=== PATIENT | female | born 1990 | race Two or more races ===

== ENCOUNTER 2024-12-01 00:39 | Emergency (ER) | payer OTHER ==
[~2024-12-01] VITALS: Ht 160 cm; Wt 68.0 kg
[2024-12-01] MEDS ORDERED: HYOSCYAMINE SULFATE 0.125 MG TAB.SUBL SL STA (02:21)
[2024-12-01] MEDS ORDERED: PROMETHAZINE HCL 50 MG/ML AMPUL IM STA (02:22)
[2024-12-01] MEDS ORDERED: PROMETHAZINE HCL 50 MG/ML AMPUL IM ONE (02:23)
[2024-12-01] MEDS ORDERED: LACTOBACILLUS ACIDOPHILUS 1 CAP CAP PO STA (02:23)
[2024-12-01] MEDS ORDERED: FAMOTIDINE/PF 20 MG/2 ML VIAL IV PUSH STA (02:23)
[2024-12-01] MEDS ORDERED: HYOSCYAMINE SULFATE 0.125 MG TAB.SUBL ONE (02:24)
[2024-12-01] MEDS ORDERED: FAMOTIDINE/PF 20 MG/2 ML VIAL ONE (02:24)
[2024-12-01] MEDS ORDERED: LACTOBACILLUS ACIDOPHILUS 1 CAP CAP PO ONE (02:24)
[2024-12-01] MEDS ORDERED: 0.9 % SODIUM CHLORIDE 1,000 ML IV ONE (02:30)
[2024-12-01 03:06] LABS: BASO % 0.1 % (0.1-1.2); EOS # 0.00 (0.04-0.54); EOS % 0.0 % (0.7-7.0); LYMPH # 0.34 (1.18-3.74); LYMPH % 2.1 % (19.3-53.1); MEAN PLATELET VOLUME 8.90 fl (9.4-12.4); MONO # 0.41 (0.24-0.82); MONO % 2.6 % (4.7-12.5); NEUT # 15.09 (1.56-6.13); NEUT % 94.8 % (34.0-71.1); RED CELL DISTRIBUTION WIDTH 12.3 % (11.6-14.4)
[2024-12-01 03:23] LABS: URINE APPEARANCE Clear; URINE BILIRRUBIN Negative (NEGATIVE); URINE BLOOD Small; URINE COLOR Yellow; URINE GLUCOSE Negative (NEGATIVE); URINE KETONE Trace (NEGATIVE); URINE LEUKOCYTE Negative; URINE NITRATE Negative; URINE PROTEIN 30 (NEGATIVE); URINE UROBILINOGEN 0.2 E.U./dl
[2024-12-01 03:27] LABS: URINE BACTERIA 1497.4 uL (0.0-1933); URINE EPITHELIAL CELLS 13.2 uL (0.0-38.8); URINE RBC 186.1 uL (0.0-20.8); URINE WBC 27.3 uL (0.0-23.2)
[2024-12-01 03:28] LABS: BUN CREA RATIO 22.0 (7.0-25.0); CREATININE SERUM 0.77 mg/dL (0.55-1.02); GFR 84.82; GLUCOSE FASTING 123.0 mg/dL (65-100); OSMOLALITY SERUM 284.0 MOSM/KG (275-295)
[2024-12-01 03:34] LABS: URINE CAST 0.43 uL (0.0-1.40)
[2024-12-01 07:22] VITALS: BP 100/63; O2SAT 96
[2024-12-01] MEDS ORDERED: CIPROFLOXACIN IN 5 % DEXTROSE 400 MG/200 ML PIGGYBAG IV STA (08:02)
[2024-12-01] MEDS ORDERED: ZOFRAN8 MG PO (08:10)
[2024-12-01] MEDS ORDERED: CIPRO500 MG PO (08:10)
[2024-12-01] MEDS ORDERED: INTESTINEX680 M2 PO (08:10)
[2024-12-01] MEDS ORDERED: PEPCID40 MG PO (08:10)
[2024-12-01] MEDS ORDERED: CIPROFLOXACIN IN 5 % DEXTROSE 400 MG/200 ML PIGGYBAG IV ONE (08:18)
== END 2024-12-01 11:06 ==
LOC: ER 00:39
PROVIDERS: General Practice
DX: R11.10 Vomiting, unspecified (principal); R19.7 Diarrhea, unspecified; R10.9 Unspecified abdominal pain